=== PATIENT | female | born 2000 | race Caucasian/White ===

== ENCOUNTER 2020-01-17 20:25 | Emergency (ER) | payer OTHER ==
[~2020-01-17] VITALS: Ht 165.1 cm; Wt 51.7 kg
== END 2020-01-17 23:26 | disposition home or self-care (01) ==
LOC: ER 20:25
DX: O20.0 Threatened abortion (principal); Z3A.01 Less than 8 weeks gestation of pregnancy

== ENCOUNTER 2021-03-27 19:07 | Emergency (ER) | payer OTHER ==
[~2021-03-27] VITALS: Ht 170.2 cm; Wt 52.2 kg
[2021-03-27] MEDS ORDERED: VAGISIL TOP (21:10)
[2021-03-27] MEDS ORDERED: CEFADROXIL500 MG PO (21:10)
[2021-03-27] MEDS ORDERED: FLUCONAZOLE150 MG PO (21:10)
== END 2021-03-27 21:45 | disposition home or self-care (01) ==
LOC: EMR PED 19:07 → ER 19:12 → EMR PED 21:45
DX: L29.2 Pruritus vulvae (principal)

== ENCOUNTER 2022-02-27 04:42 | Inpatient (IN) | payer OTHER ==
[~2022-02-27] VITALS: Ht 170.2 cm; Wt 70.8 kg
[~2022-02-27 04:42] MED LIST: CEFADROXIL500 MG PO; FLUCONAZOLE150 MG PO; VAGISIL TOP
[2022-02-27] MEDS ORDERED: PRENATAL + DHA1 EAC1 PO (05:51)
== END 2022-03-01 13:27 | disposition home or self-care (01) | DRG 807 ==
LOC: LDR 04:42 → OB/GYN 17:52
PROVIDERS: ADMIT Obstetrics & Gynecology; ATTEND Obstetrics & Gynecology
PROC: 10E0XZZ Delivery of Products of Conception, External Approach (ICD-10-PCS; principal; 2022-02-27)
PROC: 4A1HXCZ Monitoring of Products of Conception, Cardiac Rate, External Approach (ICD-10-PCS; 2022-02-27)
DX: O99.824 Streptococcus B carrier state complicating childbirth (principal); Z37.0 Single live birth; Z3A.40 40 weeks gestation of pregnancy